=== PATIENT | male | born 1985 | race Caucasian/White ===

== ENCOUNTER 2022-03-19 15:06 | Inpatient (IN) | payer BC ==
[~2022-03-19] VITALS: Ht 182.9 cm; Wt 136.1 kg
[~2022-03-19 15:06] MED LIST: GABAPENTIN100 MG PO; LISINOPRIL20 MG PO; METFORMIN HCL500 MG PO
[2022-03-19] MEDS ORDERED: ASPIRIN 325 MG TAB PO ONE (16:15)
[2022-03-19 17:11] LABS: BASOPHILS % 0.3 % (0.0-1.0); EOSINOPHILS % 0.1 % (0.0-6.0); HEMATOCRIT 37.1 % (38.2-49.6); HEMOGLOBIN 12.7 g/dL (14.0-18.0); LYMPHOCYTES # (AUTO) 2.2 (1.0-3.2); LYMPHOCYTES % 22.7 % (18.0-39.1); MEAN CORPUSCULAR HEMOGLOBIN 29.5 pg (28-32); MEAN CORPUSCULAR HGB CONC 34.2 g/dL (31-35); MEAN CORPUSCULAR VOLUME 86.1 fL (81-99); MONOCYTES # (AUTO) 0.4 (0.2-0.8); MONOCYTES % 4.5 % (4.4-11.3); NEUTROPHILS # (AUTO) 6.9 (2.1-6.9); NEUTROPHILS % 71.9 % (38.7-80.0); PLATELET COUNT 258 x10e3/uL (140-360); RED BLOOD COUNT 4.31 x10e6/uL (4.3-5.7); RED CELL DISTRIBUTION WIDTH 13.2 % (11.7-14.4)
[2022-03-19 17:23] LABS: INR 0.88; PROTHROMBIN TIME 12.8 seconds (11.9-14.5)
[2022-03-19 17:28] LABS: CALCIUM 9.5 mg/dL (8.4-10.2); CREATINE KINASE 119 IU/L (30-200); CREATININE, SERUM 1.17 mg/dL (0.72-1.25)
[2022-03-19] MEDS ORDERED: Morphine 2mg Syringe 2 MG/ML SYR IV PRN (17:45)
[2022-03-19] MEDS ORDERED: ACETAMINOPHEN 325 MG TAB PO PRN (17:45)
[2022-03-19] MEDS ORDERED: ASPIRIN 81 MG CHEW TAB PO ONE (17:45)
[2022-03-19] MEDS ORDERED: ZOLPIDEM TARTRATE 5 MG TAB PO PRN (17:45)
[2022-03-19] MEDS ORDERED: HYDROCODONE/APAP 5MG-325MG TAB PO PRN (17:45)
[2022-03-19] MEDS ORDERED: Morphine 4mg INJECTION 4 MG/ML INJ IV PRN (17:45)
[2022-03-19] MEDS ORDERED: ONDANSETRON HCL INJ 2MG/ML 2ML 2 MG/ML VIAL IV PRN (17:45)
[2022-03-19] MEDS: SODIUM CHLORIDE 0.9% 1000ML 1,000 ML IV SCH (17:57)
[2022-03-19 17:58] VITALS: BP 134/72
[2022-03-19] MEDS: METFORMIN HCL 500 MG TAB PO SCH (18:00)
[2022-03-19] MEDS ORDERED: METOPROLOL SUCCINATE 50 MG TAB XL PO ONE (18:00)
[2022-03-19] MEDS ORDERED: METOPROLOL SUCCINATE 50 MG TAB XL PO SCH (18:15)
[2022-03-19] MEDS ORDERED: DEXTROSE 50% SYRINGE 50 ML IV PRN (18:45)
[2022-03-19] MEDS: INSULIN LISPRO 100 UNIT/1 ML 3ML VIAL SQ SCH (19:03)
[2022-03-19 20:12] VITALS: BP 150/99
[2022-03-19] MEDS: GABAPENTIN 100 MG CAP PO SCH (20:46)
[2022-03-19] MEDS: ATORVASTATIN 40 MG TAB PO SCH (20:47)
[2022-03-19] MEDS ORDERED: ATORVASTATIN 20 MG TAB PO SCH (21:00)
[2022-03-19 21:47] VITALS: BP 150/99
[2022-03-19 21:51] VITALS: BP 150/99
[2022-03-19] MEDS ORDERED: METOPROLOL TART50 MG PO (22:30)
[2022-03-19] MEDS ORDERED: AMLODIPINE BESY10 MG PO (22:30)
[2022-03-19] MEDS ORDERED: GLIPIZIDE5 MG PO (22:31)
[2022-03-19] MEDS ORDERED: REPAGLINIDE0.5 MG PO (22:31)
[2022-03-20 00:08] VITALS: BP 136/85
[2022-03-20 01:20] LABS: CREATINE KINASE 183 IU/L (30-200)
[2022-03-20] MEDS: SODIUM CHLORIDE 0.9% 1000ML 1,000 ML IV SCH ×2 (05:34→13:20)
[2022-03-20 06:44] LABS: ALANINE AMINOTRANSFERASE 28 IU/L (0-55); ALBUMIN 2.5 g/dL (3.5-5.0); ALBUMIN/GLOBULIN RATIO 0.6 (0.8-2.0); ALKALINE PHOSPHATASE 126 IU/L (40-150); ANION GAP 14.4 mmol/L (8-16); BLOOD UREA NITROGEN < 5 mg/dL (7-26); CARBON DIOXIDE 27 mmol/L (22-29); CHLORIDE 103 mmol/L (98-107); CHOLESTEROL 258 MD/DL (0-199); CREATININE, SERUM 0.55 mg/dL (0.72-1.25); GLUCOSE 93 mg/dL (74-118); HDL CHOLESTEROL 43 MG/DL (40-60); LDL CHOLESTEROL 191 MG/DL (60-130); POTASSIUM 3.4 mmol/L (3.5-5.1); SODIUM 141 mmol/L (136-145); TRIGLYCERIDES 118 MG/DL (0-149)
[2022-03-20 06:54] LABS: BUN/CREATININE RATIO 9 (6-25)
[2022-03-20 07:33] VITALS: BP 126/84
[2022-03-20 08:19] LABS: BASOPHILS % 0.4 % (0.0-1.0); EOSINOPHILS # (AUTO) 0.1 (0.0-0.4); HEMATOCRIT 37.1 % (38.2-49.6); HEMOGLOBIN 12.5 g/dL (14.0-18.0); LYMPHOCYTES # (AUTO) 2.4 (1.0-3.2); LYMPHOCYTES % 33.9 % (18.0-39.1); MEAN CORPUSCULAR HEMOGLOBIN 29.6 pg (28-32); MEAN CORPUSCULAR HGB CONC 33.7 g/dL (31-35); MEAN CORPUSCULAR VOLUME 87.7 fL (81-99); MONOCYTES # (AUTO) 0.4 (0.2-0.8); MONOCYTES % 5.3 % (4.4-11.3); NEUTROPHILS # (AUTO) 4.2 (2.1-6.9); NEUTROPHILS % 59.1 % (38.7-80.0); PLATELET COUNT 232 x10e3/uL (140-360); RED BLOOD COUNT 4.23 x10e6/uL (4.3-5.7); RED CELL DISTRIBUTION WIDTH 13.3 % (11.7-14.4)
[2022-03-20] MEDS: GABAPENTIN 100 MG CAP PO SCH ×3 (08:22→20:35)
[2022-03-20] MEDS: METFORMIN HCL 500 MG TAB PO SCH ×2 (08:22→16:31)
[2022-03-20] MEDS: PRASUGREL 10 MG TAB PO SCH (08:22)
[2022-03-20] MEDS: METOPROLOL SUCCINATE 50 MG TAB XL PO SCH (08:22)
[2022-03-20] MEDS: INSULIN LISPRO 100 UNIT/1 ML 3ML VIAL SQ SCH ×4 (08:24→20:52)
[2022-03-20] MEDS: LISINOPRIL 20 MG TAB PO SCH ×2 (08:25→08:27)
[2022-03-20] MEDS: ASPIRIN 325 MG TAB PO SCH (08:25)
[2022-03-20 08:34] LABS: CREATINE KINASE 277 IU/L (30-200)
[2022-03-20 11:13] VITALS: BP 134/90
[2022-03-20] MEDS ORDERED: POTASSIUM CHLORIDE 20 MEQ TAB CR PO NR (12:43)
[2022-03-20 15:38] VITALS: BP 117/82
[2022-03-20] MEDS: ATORVASTATIN 40 MG TAB PO SCH (20:35)
[2022-03-20 21:07] VITALS: BP 117/82
[2022-03-20 23:57] VITALS: BP 115/78
[2022-03-21] MEDS: SODIUM CHLORIDE 0.9% 1000ML 1,000 ML IV SCH ×2 (06:13→06:14)
[2022-03-21 07:50] VITALS: BP 129/93
[2022-03-21 08:00] VITALS: BP 129/93
[2022-03-21] MEDS: LISINOPRIL 20 MG TAB PO SCH (08:43)
[2022-03-21] MEDS: METOPROLOL SUCCINATE 50 MG TAB XL PO SCH (08:44)
[2022-03-21] MEDS: PRASUGREL 10 MG TAB PO SCH (08:44)
[2022-03-21] MEDS: GABAPENTIN 100 MG CAP PO SCH (08:44)
[2022-03-21] MEDS: METFORMIN HCL 500 MG TAB PO SCH (08:44)
[2022-03-21] MEDS: ASPIRIN 325 MG TAB PO SCH (08:45)
[2022-03-21] MEDS: INSULIN LISPRO 100 UNIT/1 ML 3ML VIAL SQ SCH ×2 (08:46→12:13)
[2022-03-21 10:45] VITALS: BP 134/94
== END 2022-03-21 15:15 | disposition home or self-care (01) | DRG 247 ==
LOC: MED/SURG 15:06
PROVIDERS: ADMIT Internal Medicine; ATTEND Internal Medicine
PROC: 027034Z Dilation of Coronary Artery, One Artery with Drug-eluting Intraluminal Device, Percutaneous Approach (ICD-10-PCS; principal; 2022-03-19)
PROC: 4A023N7 Measurement of Cardiac Sampling and Pressure, Left Heart, Percutaneous Approach (ICD-10-PCS; 2022-03-19)
PROC: B2111ZZ Fluoroscopy of Multiple Coronary Arteries using Low Osmolar Contrast (ICD-10-PCS; 2022-03-19)
PROC: B2151ZZ Fluoroscopy of Left Heart using Low Osmolar Contrast (ICD-10-PCS; 2022-03-19)
DX: I21.4 Non-ST elevation (NSTEMI) myocardial infarction (principal); Z68.41 Body mass index [BMI] 40.0-44.9, adult; I25.110 Atherosclerotic heart disease of native coronary artery with unstable angina pectoris; E11.9 Type 2 diabetes mellitus without complications; E66.01 Morbid (severe) obesity due to excess calories; Z20.822 Contact with and (suspected) exposure to COVID-19; E11.69 Type 2 diabetes mellitus with other specified complication; Z79.4 Long term (current) use of insulin; E78.2 Mixed hyperlipidemia; I10 Essential (primary) hypertension
CPT/HCPCS: 0223U; 36415; 76937; 80048; 80053; 80061; 82550; 82553; 82948; 83036; 83880; 84484; 85025; 85610; 92928; 93005; 93306; 93458; 99152; 99153; C1874; C1887; J7030